=== PATIENT | male | born 1985 | race Two or more races ===

== ENCOUNTER 2021-08-01 21:30 | Emergency (ER) | payer SELFPAY ==
[2021-08-01 21:54] VITALS: BP 120/70; PULSE 88; TEMP 99.3; BMI 29.0
[2021-08-01] MEDS ORDERED: LIDOCAINE 2%/EPINEPHRINE 1:100000 (50 ML MD VIAL) INF ONE (21:57)
[2021-08-01] MEDS ORDERED: LIDOCAINE HCL/EPINEPHRINE/PF 20 ML VIAL ONE (22:08)
[2021-08-01] MEDS ORDERED: CEPHALEXIN MONOHYDRATE 500 MG CAPSULE (UD) PO ONE (23:00)
[2021-08-01] MEDS ORDERED: CEPHALEXIN MONOHYDRATE 500 MG CAPSULE (UD) ONE (23:03)
== END 2021-08-01 23:05 | disposition home or self-care (01) ==
LOC: FER 21:30
DX: S01.511A Laceration without foreign body of lip, initial encounter (principal); W21.03XA Struck by baseball, initial encounter
CPT/HCPCS: 99283-25